=== PATIENT | male | born 1970 | race Caucasian/White ===

== ENCOUNTER 2016-11-18 10:54 | Observation (INO) | payer OTHER ==
[~2016-11-18] VITALS: Ht 175.3 cm; Wt 82.2 kg
[~2016-11-18 10:54] MED LIST: AMOXICILLIN500 MG PO; AMOXICILLIN875 MG PO; CHERATUSSIN AC473 ML PO; GLUCOPHAGE500 MG PO; LEVAQUIN500 MG PO; LEVEMIR100 UNIT/2 SC; LEVOFLOXACIN750 MG PO; LORTAB 5-325 M1 EACH PO; MEDROL DOSEPAK4 MG PO; MOTRIN600 MG PO; NAPROSYN500 MG PO; NOVOLIN,HU100 UNITS1 SC; ONE DAILY TABL1 EAC1 PO; PREDNISONE20 MG PO; RELION MICRO MC; RELION PRIME1 EACH MC; RELION THIN MC; VENTOLIN HFA18 GM IH; ZITHROMAX Z-PA250 MG PO; ZYRTEC-D1 TABLE1 PO
[2016-11-18 11:41] LABS: MCH 29.8 PG (29.0-34.0); MCHC 34.9 G/DL (30.0-36.0); MCV 85.5 FL (86-99); MEAN PLAT.VOLUME 10.8 uM^3 (9.0-12.4); PLATELET COUNT 257 K/uL (156-360); RBC DIS.WIDTH-CV 12.6 % (11.8-14.6); RBC DIS.WIDTH-SD 38.4 % (39-53); RED BLOOD COUNT 5.03 M/uL (4.00-5.50); WHITE BLOOD COUNT 8.1 K/uL (4.1-10.2)
[2016-11-18 11:53] LABS: CHLORIDE 100 mEq/L (99-109); POTASSIUM 3.9 mEq/L (3.7-5.4); SODIUM 134 mEq/L (136-147)
[2016-11-18 12:37] LABS: ANION GAP 15 MEQ/L (2-14)
[2016-11-18 12:39] LABS: GFR ESTIMATE (CALCULATED) > 59 mL/min/
[2016-11-18 12:40] LABS: UREA NITROGEN (BUN) 10 mg/dL (9-23)
[2016-11-18 12:41] LABS: GLUCOSE 484 mg/dL (70-99)
[2016-11-18] MEDS ORDERED: AZITHROMYCIN250 MG PO (13:00)
[2016-11-18 13:35] LABS: TROP-I INTERPRETATION NEGATIVE; TROPONIN-I < 0.01 ng/mL (0.0-0.30)
[2016-11-18] MEDS ORDERED: MULTI-VITAMIN1 EAC4 PO (13:54)
[2016-11-18] MEDS ORDERED: PROAIR HFA8.5 GM IH (13:54)
[2016-11-18 14:12] LABS: ADD MIUA? NO; BILIRUBIN NEGATIVE; BLOOD NEGATIVE; GLUCOSE (STRIP) >=1000; KETONES NEGATIVE; LEUKOCYTES NEGATIVE; NITRITE NEGATIVE; PH, URINE 6.5 (5-8); PROTEIN (STRIP) NEGATIVE; SPECIFIC GRAVITY 1.045 (1.000-1.030)
[2016-11-18 14:13] LABS: COLOR LT YELLOW ((YELLOW))
[2016-11-18 14:15] LABS: POINT-OF-CARE METER ID UU13113800
[2016-11-18 14:18] LABS: Estimated Average Glucose 266 mg/dL (70-123); HEMOGLOBIN A1c (GLYCOHEMOGLOB) 10.9 % HGB (Below 5.7)
[2016-11-18 16:58] LABS: SAMPLE HEMOLYSIS CHECK 0; SAMPLE ICTERIC CHECK 0; SAMPLE LIPEMIA CHECK 0
[2016-11-18 17:04] LABS: HDL CHOLESTEROL 35 MG/DL (Desirable>=40); LDL CHOLESTEROL 32 mg/dL (Desirable<100); NON-HDL CHOLESTEROL 112 mg/dL (Desirable<160); TOTAL CHOLESTEROL 147 mg/dL (Desirable<200); TRIGLYCERIDES 398 MG/DL (Normal: <150)
[2016-11-18 18:06] LABS: POINT-OF-CARE METER ID UU13113800
[2016-11-18 19:40] VITALS: BP 134/75
[2016-11-18 20:41] LABS: TROP-I INTERPRETATION NEGATIVE; TROPONIN-I < 0.01 ng/mL (0.0-0.30)
[2016-11-18 23:11] LABS: POINT-OF-CARE METER ID UU14162513
[2016-11-19 00:27] VITALS: BP 122/71
[2016-11-19 04:27] VITALS: BP 125/72
[2016-11-19 06:51] LABS: POINT-OF-CARE METER ID UU14162513
[2016-11-19 08:00] VITALS: BP 131/72
[2016-11-19 09:58] LABS: TROP-I INTERPRETATION NEGATIVE; TROPONIN-I < 0.01 ng/mL (0.0-0.30)
[2016-11-19] MEDS ORDERED: AZITHROMYCIN250 MG PO ×2 (10:53→10:59)
[2016-11-19] MEDS ORDERED: LEVEMIR100 UNIT/2 SC (10:53)
[2016-11-19] MEDS ORDERED: MUCINEX600 MG PO (10:53)
[2016-11-19] MEDS ORDERED: ATORVASTATIN CA40 MG PO (10:59)
[2016-11-19] MEDS ORDERED: ASPIR-LOW81 MG PO (10:59)
[2016-11-19 13:00] LABS: POINT-OF-CARE METER ID UU13113831
[2016-11-19] MEDS ORDERED: NOVOLIN,HU100 UNITS1 SC (13:45)
== END 2016-11-19 15:03 | disposition home or self-care (01) ==
LOC: EME 10:54 → EDOF 16:30 → 5WEST 16:30 → EDOF 16:30 → 5WEST 19:50
PROVIDERS: Hospitalist; Internal Medicine; Nurse Practitioner Adult Health; Physician Assistant
DX: R07.9 Chest pain, unspecified (principal); R06.02 Shortness of breath; J40 Bronchitis, not specified as acute or chronic; E11.9 Type 2 diabetes mellitus without complications; Z79.82 Long term (current) use of aspirin; Z79.4 Long term (current) use of insulin; J02.9 Acute pharyngitis, unspecified
CPT/HCPCS: 71020; 71250; 80048; 80061; 81003; 82009; 82800; 82948; 83036; 84484; 85027; 87040; 93005; 93306; 94640; 94640 76; 94760; 99202; 99281; 99285; G0378; J1650; J1815; J2930; J7030

== ENCOUNTER 2016-12-21 04:57 | Emergency (ER) | payer OTHER ==
[~2016-12-21] VITALS: Ht 175.3 cm; Wt 81.6 kg
[~2016-12-21 04:57] MED LIST changes: +ASPIR-LOW81 MG PO; +ATORVASTATIN CA40 MG PO; +AZITHROMYCIN250 MG PO; +MUCINEX600 MG PO; +MULTI-VITAMIN1 EAC4 PO; +PROAIR HFA8.5 GM IH
[2016-12-21 05:38] LABS: INFLUENZA A VIRAL ANTIGEN NEGATIVE; INFLUENZA B VIRAL ANTIGEN NEGATIVE
[2016-12-21 06:49] LABS: HEMATOCRIT 42.8 % (38.0-50.0); MCH 29.9 PG (29.0-34.0); MCHC 34.6 G/DL (30.0-36.0); MCV 86.5 FL (86-99); PLATELET COUNT 239 K/uL (156-360); RBC DIS.WIDTH-CV 12.9 % (11.8-14.6); RBC DIS.WIDTH-SD 39.7 % (39-53); RED BLOOD COUNT 4.95 M/uL (4.00-5.50); WHITE BLOOD COUNT 9.5 K/uL (4.1-10.2)
[2016-12-21 06:51] LABS: EOSINOPHIL (%) 0.2 % (0-5); IMMATURE GRANULOCYTE COUNT 0.9 K/uL; LYMPHOCYTE COUNT 1.6 K/uL (1.0-2.8); MONOCYTE (%) 18.5 % (3-12); MONOCYTE COUNT 1.8 K/uL (0-0.8); NEUTROPHIL (%) 62.5 % (45-76); NEUTROPHIL COUNT 5.9 K/uL (1.8-6.4)
[2016-12-21 07:33] LABS: ANION GAP 11 MEQ/L (2-14); CHLORIDE 99 MEQ/L (99-109); GFR ESTIMATE (CALCULATED) > 59 mL/min/; GLUCOSE 259 mg/dL (70-99); POTASSIUM 3.9 MEQ/L (3.7-5.4); SAMPLE HEMOLYSIS CHECK 0; SAMPLE ICTERIC CHECK 0; SAMPLE LIPEMIA CHECK 0; SODIUM 136 MEQ/L (136-147); UREA NITROGEN (BUN) 15 mg/dL (9-23)
[2016-12-21] MEDS ORDERED: TYLENOL WITH C1 EACH PO (08:40)
[2016-12-21] MEDS ORDERED: PREDNISONE50 MG PO (08:40)
[2016-12-21] MEDS ORDERED: ZITHROMAX Z-PA250 MG PO (08:40)
[2016-12-21 09:07] VITALS: BP 114/70
== END 2016-12-21 09:19 | disposition home or self-care (01) ==
LOC: EME 04:57
PROVIDERS: Emergency Medicine
DX: J40 Bronchitis, not specified as acute or chronic (principal); B34.9 Viral infection, unspecified; E11.9 Type 2 diabetes mellitus without complications; Z79.4 Long term (current) use of insulin
CPT/HCPCS: 71010; 80048; 85025; 87502; 94640; 94640 76; 99281; 99285; J1885; J7030

== ENCOUNTER 2016-12-23 23:17 | Emergency (ER) | payer OTHER ==
[~2016-12-23] VITALS: Ht 175.3 cm; Wt 80.6 kg
[~2016-12-23 23:17] MED LIST changes: +PREDNISONE50 MG PO; +TYLENOL WITH C1 EACH PO
[2016-12-23 23:37] LABS: POINT-OF-CARE METER ID UU13113778
[2016-12-24 00:24] LABS: EOSINOPHIL (%) 0.1 % (0-5); HEMATOCRIT 44.2 % (38.0-50.0); IMMATURE GRANULOCYTE (%) 1.2 % (0.0-0.7); LYMPHOCYTE COUNT 1.5 K/uL (1.0-2.8); MCH 29.6 PG (29.0-34.0); MCHC 34.6 G/DL (30.0-36.0); MCV 85.5 FL (86-99); MEAN PLAT.VOLUME 10.9 uM^3 (9.0-12.4); MONOCYTE (%) 7.2 % (3-12); MONOCYTE COUNT 0.6 K/uL (0-0.8); NEUTROPHIL (%) 73.7 % (45-76); NEUTROPHIL COUNT 6.1 K/uL (1.8-6.4); PLATELET COUNT 273 K/uL (156-360); RBC DIS.WIDTH-CV 12.7 % (11.8-14.6); RBC DIS.WIDTH-SD 38.3 % (39-53); RED BLOOD COUNT 5.17 M/uL (4.00-5.50); WHITE BLOOD COUNT 8.3 K/uL (4.1-10.2)
[2016-12-24 00:33] LABS: CHLORIDE 99 mEq/L (99-109); POTASSIUM 4.1 mEq/L (3.7-5.4); SODIUM 136 mEq/L (136-147)
[2016-12-24 00:35] LABS: GLUCOSE 358 mg/dL (70-99)
[2016-12-24 00:36] LABS: ANION GAP 12 MEQ/L (2-14)
[2016-12-24 00:37] LABS: TOTAL BILIRUBIN 0.2 mg/dL (0.0-1.0)
[2016-12-24 00:39] LABS: ALKALINE PHOSPHATASE 92 IU/L (3-129); GFR ESTIMATE (CALCULATED) > 59 mL/min/
[2016-12-24 00:40] LABS: UREA NITROGEN (BUN) 17 mg/dL (9-23)
[2016-12-24] MEDS ORDERED: ATARAX,VISTARIL50 MG PO (01:07)
[2016-12-24 01:28] VITALS: BP 128/79
== END 2016-12-24 01:45 | disposition home or self-care (01) ==
LOC: EME 23:17
PROVIDERS: Emergency Medicine
DX: E11.65 Type 2 diabetes mellitus with hyperglycemia (principal); J06.9 Acute upper respiratory infection, unspecified; Z79.4 Long term (current) use of insulin
CPT/HCPCS: 71010; 80053; 82010; 82800; 82948; 85025; 94640; 99281; 99283; Q0177